=== PATIENT | male | born 1970 | race Caucasian/White ===

== ENCOUNTER 2022-11-26 23:41 | Inpatient (IN) | payer MEDICAID ==
[~2022-11-26] VITALS: Ht 182.9 cm; Wt 117.9 kg
[2022-11-27 00:38] LABS: HEMATOCRIT. 40.2 % (42.0-52.0); HEMOGLOBIN. 13.5 g/dL (14.0-18.0); MEAN CORPUSCULAR HEMOGLOBIN 27.4 pg (28.0-32.0); MEAN CORPUSCULAR VOLUME 81.4 fL (80.0-94.0); MEAN PLATELET VOLUME 9.9 fl (7.4-10.4); PLATELET 138 x1000/uL (130-400); RED BLOOD CELL COUNT 4.94 mill/uL (4.7-6.1); RED CELL DISTRIBUTION WIDTH 14.4 % (11.6-14.6)
[2022-11-27 00:41] LABS: CHLORIDE 88 mEq/L (98-107)
[2022-11-27 01:20] LABS: PLATELET ESTIMATE NORMAL
[2022-11-27] MEDS ORDERED: SODIUM CHLORIDE 0.9% 1000ML BAG (SEPSIS BOLUS) IV ONE (01:30)
[2022-11-27] MEDS ORDERED: CEFTRIAXONE 1GM PREMIX 50 ML IV ONE (01:30)
[2022-11-27] MEDS ORDERED: AZITHROMYCIN 500MG/250ML 250 ML IV ONE (01:30)
[2022-11-27 01:41] LABS: *AMPHETAMINES SCREEN URINE NEGATIVE (NEGATIVE); *BARBITURATES SCREEN URINE NEGATIVE (NEGATIVE); *BENZODIAZEPINES SCREEN URINE NEGATIVE (NEGATIVE); *COCAINE SCREEN URINE NEGATIVE (NEGATIVE); CANNABINOID URINE SCREEN NEGATIVE (NEGATIVE); METHADONE URINE SCREEN NEGATIVE (NEGATIVE); OPIATES URINE SCREEN NEGATIVE (NEGATIVE); PHENCYCLIDINE URINE SCREEN NEGATIVE (NEGATIVE)
[2022-11-27 02:00] LABS: D-DIMER 2.99 mg/L FEU (<0.50); INR 1.1; PROTHROMBIN TIME 11.6 sec (9.6-11.0)
[2022-11-27] MEDS ORDERED: INSULIN REGULAR (HUMULIN R) 300UNITS/3ML VIAL SUBCUT ONE (03:00)
[2022-11-27 04:20] VITALS: BP 119/80
[2022-11-27] MEDS ORDERED: IOHEXOL-350 100 ML BOTTLE ONE (06:15)
[2022-11-27] MEDS ORDERED: INSULIN GLARGINE 100 UNITS/ML SUBCUT NR (06:19)
[2022-11-27] MEDS ORDERED: DEXTROSE 50% WATER 50ML SYRINGE IV PRN (06:30)
[2022-11-27] MEDS: BLOOD SUGAR DIAGNOSTIC STRIP TEST SCH ×4 (06:40→21:00)
[2022-11-27] MEDS: SODIUM CHLORIDE 0.9% 1,000 ML IV SCH ×2 (06:49→19:50)
[2022-11-27] MEDS ORDERED: METF-874 MT (07:41)
[2022-11-27 08:00] VITALS: BP 121/65
[2022-11-27] MEDS ORDERED: IPRATROPIUM/ALBUTEROL 0.5-3(2.5)MG/3ML NEB HHN SCH (08:00)
[2022-11-27] MEDS: INSULIN LISPRO 100 UNITS/ML SUBCUT SCH ×4 (08:07→21:12)
[2022-11-27] MEDS ORDERED: ENOXAPARIN 40MG/0.4ML SYR SUBCUT SCH (08:30)
[2022-11-27] MEDS ORDERED: CEFTRIAXONE 1GM PREMIX 50 ML IV SCH (08:30)
[2022-11-27] MEDS ORDERED: ONDANSETRON HCL 4MG/2ML INJ IV PRN (08:30)
[2022-11-27] MEDS: INSULIN GLARGINE 100 UNITS/ML SUBCUT SCH (09:03)
[2022-11-27] MEDS: ENOXAPARIN 30MG/0.3ML SYR SUBCUT SCH ×2 (09:15→21:12)
[2022-11-27 10:06] LABS: BASOPHILS % 0.3 % (0.0-2.0); HEMATOCRIT. 40.1 % (42.0-52.0); HEMOGLOBIN. 13.6 g/dL (14.0-18.0); LYMPHOCYTES % 17.1 % (20.0-50.0); MEAN CORPUSCULAR HEMOGLOBIN 27.9 pg (28.0-32.0); MEAN CORPUSCULAR VOLUME 82.4 fL (80.0-94.0); MEAN PLATELET VOLUME 9.9 fl (7.4-10.4); MONOCYTES % 10.5 % (2.0-8.0); NEUTROPHILS % 71.1 % (40.0-76.0); PLATELET 128 x1000/uL (130-400); RED BLOOD CELL COUNT 4.87 mill/uL (4.7-6.1); RED CELL DISTRIBUTION WIDTH 14.4 % (11.6-14.6)
[2022-11-27 10:33] LABS: CHLORIDE 98 mEq/L (98-107)
[2022-11-27 12:00] VITALS: BP 139/85
[2022-11-27] MEDS: IPRATROPIUM BROMIDE (0.02%) 0.5MG/2.5ML NEB HHN SCH ×3 (12:32→21:30)
[2022-11-27] MEDS: ALBUTEROL (0.083%) 2.5MG/3ML NEB HHN SCH ×3 (12:33→21:30)
[2022-11-27] MEDS ORDERED: CEFEPIME 1,000 MG in DEXTROSE 5% WATER 50 ML IV SCH (14:30)
[2022-11-27 16:00] VITALS: BP 114/59
[2022-11-27] MEDS: ACETAMINOPHEN 325MG TABLET PO PRN (17:08)
[2022-11-27] MEDS: CEFEPIME 1GM PREMIX 50 ML IV SCH (17:11)
[2022-11-27 17:58] LABS: CLARITY URINE CLEAR (CLEAR); COLOR URINE YELLOW (YELLOW); KETONES URINE 2+ (NEGATIVE); LEUKOCYTE ESTERASE URINE NEGATIVE (NEGATIVE); NITRITE URINE NEGATIVE (NEGATIVE); OCCULT BLOOD URINE TRACE (NEGATIVE); PROTEIN URINE TRACE (NEGATIVE); SPECIFIC GRAVITY URINE 1.025 (1.005-1.030)
[2022-11-27 18:05] LABS: *AMPHETAMINES SCREEN URINE NEGATIVE (NEGATIVE); *BARBITURATES SCREEN URINE NEGATIVE (NEGATIVE); *BENZODIAZEPINES SCREEN URINE NEGATIVE (NEGATIVE); *COCAINE SCREEN URINE NEGATIVE (NEGATIVE); CANNABINOID URINE SCREEN NEGATIVE (NEGATIVE); METHADONE URINE SCREEN NEGATIVE (NEGATIVE); OPIATES URINE SCREEN NEGATIVE (NEGATIVE); PHENCYCLIDINE URINE SCREEN NEGATIVE (NEGATIVE)
[2022-11-27 20:00] VITALS: BP 148/89
[2022-11-27] MEDS: BUDESONIDE 0.5MG/2ML NEB HHN SCH (21:30)
[2022-11-28] VITALS: BP 116/76
[2022-11-28] MEDS ORDERED: AZITHROMYCIN 500MG in DEXTROSE 5% WATER 250ML IV SCH (01:00)
[2022-11-28] MEDS ORDERED: CEFTRIAXONE 1GM PREMIX 50 ML IV SCH (01:00)
[2022-11-28] MEDS ORDERED: CEFTRIAXONE 1,000 MG in DEXTROSE 5% WATER 50 ML IV SCH (01:00)
[2022-11-28] MEDS: IPRATROPIUM BROMIDE (0.02%) 0.5MG/2.5ML NEB HHN SCH ×6 (01:40→20:00)
[2022-11-28] MEDS: ALBUTEROL (0.083%) 2.5MG/3ML NEB HHN SCH ×6 (01:40→20:00)
[2022-11-28] MEDS ORDERED: AZITHROMYCIN 500MG/250ML 250 ML IV SCH (02:00)
[2022-11-28 04:00] VITALS: BP 131/79
[2022-11-28] MEDS: BLOOD SUGAR DIAGNOSTIC STRIP TEST SCH ×4 (05:45→21:00)
[2022-11-28] MEDS: INSULIN LISPRO 100 UNITS/ML SUBCUT SCH ×4 (05:45→21:55)
[2022-11-28] MEDS: CEFEPIME 1GM PREMIX 50 ML IV SCH (05:46)
[2022-11-28] MEDS: ACETAMINOPHEN 325MG TABLET PO PRN ×4 (05:46→21:58)
[2022-11-28] MEDS: BUDESONIDE 0.5MG/2ML NEB HHN SCH ×2 (07:57→20:21)
[2022-11-28 08:00] VITALS: BP 133/69
[2022-11-28] MEDS: ENOXAPARIN 30MG/0.3ML SYR SUBCUT SCH ×2 (09:21→21:38)
[2022-11-28] MEDS: INSULIN GLARGINE 100 UNITS/ML SUBCUT SCH (09:22)
[2022-11-28] MEDS: SODIUM CHLORIDE 0.9% 1,000 ML IV SCH ×2 (10:06→22:30)
[2022-11-28 12:00] VITALS: BP 130/79
[2022-11-28] MEDS: LEVOFLOXACIN 750MG PREMIX 150 ML IV SCH (13:39)
[2022-11-28 16:00] VITALS: BP 127/76
[2022-11-28 20:00] VITALS: BP 124/70
[2022-11-28] MEDS: GABAPENTIN 300MG CAPSULE PO SCH (22:41)
[2022-11-28] MEDS ORDERED: NALOXONE HCL 0.4MG/ML VIAL IV PRN (22:45)
[2022-11-29] VITALS: BP 140/80
[2022-11-29] MEDS: HYDROCODONE/ACETAMINOPHEN 10/325MG TABLET PO PRN ×3 (01:17→20:37)
[2022-11-29 04:00] VITALS: BP 110/67
[2022-11-29] MEDS: BLOOD SUGAR DIAGNOSTIC STRIP TEST SCH ×4 (05:37→20:36)
[2022-11-29] MEDS: INSULIN LISPRO 100 UNITS/ML SUBCUT SCH ×4 (05:51→20:38)
[2022-11-29 06:28] LABS: HEMATOCRIT. 37.4 % (42.0-52.0); HEMOGLOBIN. 12.7 g/dL (14.0-18.0); MEAN CORPUSCULAR HEMOGLOBIN 27.6 pg (28.0-32.0); MEAN CORPUSCULAR VOLUME 81.1 fL (80.0-94.0); MEAN PLATELET VOLUME 9.8 fl (7.4-10.4); PLATELET 145 x1000/uL (130-400); RED BLOOD CELL COUNT 4.62 mill/uL (4.7-6.1); RED CELL DISTRIBUTION WIDTH 14.1 % (11.6-14.6)
[2022-11-29 07:55] LABS: CHLORIDE 101 mEq/L (98-107)
[2022-11-29 08:00] VITALS: BP 101/60
[2022-11-29] MEDS: IPRATROPIUM BROMIDE (0.02%) 0.5MG/2.5ML NEB HHN SCH ×6 (08:19→23:40)
[2022-11-29] MEDS: ALBUTEROL (0.083%) 2.5MG/3ML NEB HHN SCH ×6 (08:19→23:40)
[2022-11-29] MEDS: BUDESONIDE 0.5MG/2ML NEB HHN SCH ×2 (08:19→19:59)
[2022-11-29] MEDS: GABAPENTIN 300MG CAPSULE PO SCH ×3 (08:24→17:19)
[2022-11-29] MEDS: ENOXAPARIN 30MG/0.3ML SYR SUBCUT SCH ×2 (08:25→20:35)
[2022-11-29] MEDS: INSULIN GLARGINE 100 UNITS/ML SUBCUT SCH (10:37)
[2022-11-29] MEDS: LEVOFLOXACIN 750MG PREMIX 150 ML IV SCH (10:43)
[2022-11-29 11:25] LABS: PLATELET ESTIMATE NORMAL
[2022-11-29] MEDS: SODIUM CHLORIDE 0.9% 1,000 ML IV SCH (11:50)
[2022-11-29 12:00] VITALS: BP 132/85
[2022-11-29 16:00] VITALS: BP 110/67
[2022-11-29 20:00] VITALS: BP 133/82
[2022-11-29] MEDS ORDERED: INSU100I28 SQ (21:13)
[2022-11-29] MEDS ORDERED: LEVO750T68 MT (21:13)
[2022-11-29] MEDS ORDERED: BUDE6HFA INH (21:13)
[2022-11-29] MEDS ORDERED: GABA-532 PO (21:13)
[2022-11-29] MEDS ORDERED: ALBU6.7H15 INH (21:13)
[2022-11-30] VITALS: BP 116/61
[2022-11-30 04:00] VITALS: BP 136/75
[2022-11-30] MEDS: ALBUTEROL (0.083%) 2.5MG/3ML NEB HHN SCH ×4 (04:25→16:14)
[2022-11-30] MEDS: IPRATROPIUM BROMIDE (0.02%) 0.5MG/2.5ML NEB HHN SCH ×4 (04:25→16:14)
[2022-11-30] MEDS: SODIUM CHLORIDE 0.9% 1,000 ML IV SCH ×2 (05:35→14:30)
[2022-11-30] MEDS: INSULIN LISPRO 100 UNITS/ML SUBCUT SCH ×2 (06:22→12:17)
[2022-11-30] MEDS: BLOOD SUGAR DIAGNOSTIC STRIP TEST SCH ×2 (06:22→12:15)
[2022-11-30 07:03] LABS: HEMATOCRIT. 37.8 % (42.0-52.0); HEMOGLOBIN. 12.6 g/dL (14.0-18.0); MEAN CORPUSCULAR HEMOGLOBIN 27.3 pg (28.0-32.0); MEAN CORPUSCULAR VOLUME 81.8 fL (80.0-94.0); MEAN PLATELET VOLUME 9.1 fl (7.4-10.4); PLATELET 159 x1000/uL (130-400); RED BLOOD CELL COUNT 4.62 mill/uL (4.7-6.1); RED CELL DISTRIBUTION WIDTH 14.6 % (11.6-14.6)
[2022-11-30 07:24] LABS: CHLORIDE 103 mEq/L (98-107)
[2022-11-30 08:00] VITALS: BP 113/84
[2022-11-30] MEDS: BUDESONIDE 0.5MG/2ML NEB HHN SCH (08:19)
[2022-11-30] MEDS: ENOXAPARIN 30MG/0.3ML SYR SUBCUT SCH (09:42)
[2022-11-30] MEDS: GABAPENTIN 300MG CAPSULE PO SCH ×2 (09:42→13:35)
[2022-11-30] MEDS: INSULIN GLARGINE 100 UNITS/ML SUBCUT SCH (09:50)
[2022-11-30] MEDS: LEVOFLOXACIN 750MG PREMIX 150 ML IV SCH (11:19)
[2022-11-30 12:00] VITALS: BP 138/89
[2022-11-30 13:33] LABS: PLATELET ESTIMATE NORMAL
[2022-11-30] MEDS: ACETAMINOPHEN 325MG TABLET PO PRN (13:44)
[2022-11-30 16:00] VITALS: BP 121/81
[2022-11-30 16:20] VITALS: BP 124/81
== END 2022-11-30 17:00 | disposition home or self-care (01) | DRG 720 ==
LOC: ER 23:41 → 7EST 11-27 02:00 → EDBEDREQTM 11-27 02:09 → EDBEDREQ 11-27 02:09 → ENRESERV 11-27 02:29
PROVIDERS: ADMIT Internal Medicine; ATTEND Internal Medicine
DX: A41.59 Other Gram-negative sepsis (principal); J96.01 Acute respiratory failure with hypoxia; E44.1 Mild protein-calorie malnutrition; E87.1 Hypo-osmolality and hyponatremia; J45.901 Unspecified asthma with (acute) exacerbation; I10 Essential (primary) hypertension; E66.01 Morbid (severe) obesity due to excess calories; E11.9 Type 2 diabetes mellitus without complications; Z20.822 Contact with and (suspected) exposure to COVID-19; R51.9 Headache, unspecified; L98.9 Disorder of the skin and subcutaneous tissue, unspecified; Z68.30 Body mass index [BMI] 30.0-30.9, adult; Z87.891 Personal history of nicotine dependence
CPT/HCPCS: 36415; 71045; 71275; 80048; 80053; 80305; 81003; 82962; 83036; 83605; 83880; 84145; 84484; 85025; 85379; 87077; 87186; 87426; 87804; 93005; 93306; 94640; 99291; C9803; J0456; J0692; J0696; J1650; J1815; J1956; J2405; J7030; J7060; J7626; Q9967